=== PATIENT | female | born 1980 | race Caucasian/White ===

== ENCOUNTER 2017-05-15 14:54 | Emergency (ER) | payer BC ==
[2017-05-15] MEDS ORDERED: Ondansetron 4 MG Tab.DIS PO ONE (16:30)
[2017-05-15] MEDS ORDERED: Diphtheria,Pertussis(Acell),Tetanus Vaccine 0.5 ML SDV IM ONE (16:30)
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
[2017-05-15 18:00] VITALS: BP 119/90
--- NOTE | 2017-05-17 12:54 | CR ---
Nasal bone: Three views of the nasal bone were obtained. Comparison: No previous study. Slightly displaced distal nasal bone fracture is identified. Visualized sinuses are clear. Surrounding bony structures are otherwise unremarkable. Impression: 1. Slightly displaced distal nasal bone fracture. Diagnostic code #3
== END 2017-05-15 17:55 | disposition home or self-care (01) ==
LOC: JD.ED 14:54
DX: S02.2XXA Fracture of nasal bones, initial encounter for closed fracture (principal); X58.XXXA Exposure to other specified factors, initial encounter; Z23 Encounter for immunization
CPT/HCPCS: 70160; 90471; 90715; 99284; A9270; 99283